=== PATIENT | male | born 1995 | race African-American/Black ===

== ENCOUNTER 2019-08-31 18:37 | Emergency (ER) | payer BC, OTHER ==
[~2019-08-31] VITALS: Ht 167.6 cm; Wt 84.8 kg
[2019-08-31 19:02] LABS: INFLUENZA A ANTIGEN Negative (Negative)
[2019-08-31 19:17] LABS: HEMOGLOBIN 14.9 gm/dL (14.0-18.0); MCH 32.7 pg (26.0-34.0); MCHC 34.7 g/dL (28.0-37.0); MCV 94.2 fL (80.0-100.0); MPV 9.3 fl. (7.2-11.1); NUCLEATED RBCS 0 /100WBC; PLATELET COUNT* 159 thou/uL (150-400); RBC 4.56 mil/uL (4.50-6.00); RDW-CV 13.9 % (10.5-14.5); WBC 5.2 thou/uL (4.0-11.0)
[2019-08-31 19:20] LABS: CALCIUM 8.1 mg/dL (8.5-10.1); CREATININE 1.1 mg/dL (0.6-1.3); POTASSIUM 3.7 mmol/L (3.5-5.1)
[2019-08-31 19:31] LABS: ALBUMIN 3.6 g/dL (3.4-5.0); TOTAL BILIRUBIN 0.6 mg/dL (<0.1-1.0); TOTAL PROTEIN 7.6 g/dL (6.4-8.2)
[2019-08-31] MEDS ORDERED: TESSALON PERLE100 MG PO (19:37)
[2019-08-31] MEDS ORDERED: TAMIFLU75 MG PO (19:37)
[2019-08-31] MEDS ORDERED: MEDROLDOSEPACK PO (19:37)
[2019-08-31 19:40] LABS: ABSOLUTE MONOCYTES 0.3 thou/uL (0.0-1.2); ABSOLUTE NEUTROPHILS 3.9 thou/uL (1.6-8.1); ATYPICAL LYMPHS 8 %; PLATELET ESTIMATE ADEQUATE
[2019-08-31 20:05] VITALS: BP 137/74
--- NOTE | 2019-09-01 13:47 | EKG ---
[place] [address] ELECTROCARDIOGRAM REPORT Name: KAILASH RODRIGUEZ [facility] [id number] Admission: 08/31/19 Attend Phys: Discharge: 08/31/19 Date of : [birth year] Report #: [id number] THIS REPORT FOR: //name// [facility] ED Test Date: 2019-08-31 Test Time: 19:06:28 Pat Name: KAILASH RODRIGUEZ Department: Room: Gender: M Senior Research Project Manager: : 1995 Requested By: Luciana Carranza Order Number: [id number] MD: Gil Byrne Measurements Intervals [place] Rate: 87 P: 25 WA: 166 QRS: 83 QRSD: 95 T: 55 QT: 311 QTc: 374 Interpretive Statements Sinus rhythm ST elev, probable normal early repol pattern No previous ECG available for comparison Electronically Signed On 09-01-2019 13:47:28 BOARD SETTER by Gil Byrne [email or web address] <ELECTRONICALLY SIGNED> By: Gil Byrne MD, [facility] 09/01/19 [id number] [id number] 1906 Gil Byrne MD, FACC /EPI
== END 2019-08-31 20:06 | disposition home or self-care (01) ==
LOC: M.ERS 18:37
PROVIDERS: Nurse Practitioner Family
DX: J10.1 Influenza due to other identified influenza virus with other respiratory manifestations (principal); R07.89 Other chest pain; J45.909 Unspecified asthma, uncomplicated; Z91.010 Allergy to peanuts